=== PATIENT | male | born 1980 | race Caucasian/White ===

== ENCOUNTER → 2020-12-02 09:59 | Outpatient (CLI) | payer OTHER, SELFPAY ==
--- NOTE | 2020-12-03 14:17 | STRESSREP ---
Stress Test Report Exercise stress test. 40-year-old man with a history of chest pain pain Stress protocol: Resting EKG demonstrates normal sinus rhythm with a rate of 64 bpm normal intervals are noted resting blood pressure is 132/78 mmHg. The patient exercised according to regular Gregorio protocol for a total duration of 13 minutes and 30 seconds patient completed 1 minute and 30 seconds into stage V of the Gregorio protocol. At rest there were no ST or T wave changes noted to suggest ischemia at peak exercise upsloping ST changes were noted with did not meet the criteria for ischemia. No clinical angina was noted the test was terminated due to completion of the test protocol. No clinical angina was noted. The peak blood pressure was 180/62 mmHg with a rate-pressure product of 26,700. This was a good blood pressure response to exercise. No arrhythmias were present. Conclusion: Normal exercise stress test with no EKG criteria for ischemia at a high workload. Good functional aerobic capacity.
== END ==
PROVIDERS: PCP Family Medicine; Referring Provider Registered Nurse; Visit Provider Registered Nurse
DX: R07.89 Other chest pain (principal)
CPT/HCPCS: 93017

== ENCOUNTER → 2023-12-24 | Outpatient (CLI) | payer BC, SELFPAY ==
--- NOTE | 2023-12-24 11:00 | LES_PTH ---
PATIENT: WALTER BURLESON LOC: [facility] U#:[id number] AGE/SX: 43/M ROOM: RE12/24/[address]: Dr. Binu Trejo MD : [id number] BED: DIS: 12/24/2023 SPEC #: [id number] RECD: 12/25/23 10:07 STATUS: SUMIT JEANNIE #: [id number] ENZO: 12/24/23 11:[address]: Binu Trejo DEPT: SURGICAL PATHOLOGY RECD BY: Jennifer Ruggiero ENTERED: 12/25/23 10:08 SP TYPE: Lesion OTHR DR: STELLA Pizarro Tissues: Skin of nose, NOS Procedures: Surgery Specimen Level IV HEADER OPERATION: Permanent pathology PRE-OP DIAGNOSIS: Nasal lesion TISSUE SUBMITTED: Nasal lesion MICROSCOPIC DIAGNOSIS Nasal lesion, biopsy: Fragments of benign squamous lesion with hyperkeratosis. See comment. WILMER/ 12/26/2023 COMMENT Due to fragmentation a distinct lesion is not identified however, a verruvoid keratosis is favored. Clinical correlation is suggested. MICROSCOPIC DESCRIPTION Slides are reviewed. GROSS DESCRIPTION Received in fixative is one container labeled with the patient's name and designated Nasal lesion. The specimen consists of a piece of sims-white soft tissue measuring 0.2 x 0.1 x 0.1cm. The entire specimen is submitted in one cassette. YOEL/ 12/25/2023 TC:5 CPT:71833
== END | disposition home or self-care (01) ==
PROVIDERS: PCP Physician Assistant; Referring Provider Otolaryngology; Visit Provider Otolaryngology
DX: L57.0 Actinic keratosis (principal); J34.89 Other specified disorders of nose and nasal sinuses
CPT/HCPCS: 88305